=== PATIENT | male | born 2000 | race Native Hawaiian/Other Pacific Islander ===

== ENCOUNTER 2022-05-19 10:22 | Emergency (ER) | payer OTHER ==
[~2022-05-19] VITALS: Ht 182.9 cm; Wt 172.4 kg
[2022-05-19 10:25] VITALS: BP 173/95; TEMP 98.5
[2022-05-19 11:23] LABS: PLATELET COUNT 194 K/uL (142-355)
[2022-05-19 11:56] LABS: PARTIAL THROMBOPLASTIN TIME 29.9 SECONDS (24.5-33.6)
== END 2022-05-19 13:00 | disposition home or self-care (01) ==
LOC: ED 10:22
PROVIDERS: Emergency Medicine
DX: K29.60 Other gastritis without bleeding (principal)
CPT/HCPCS: 80053; 81002; 83690; 84484; 85027; 85610; 85730; 93005; 96360; 96374; 96375; 99283; J2270; J2405